=== PATIENT | female | born 1960 | race African-American/Black ===

== ENCOUNTER 2019-05-03 00:36 | Emergency (ER) | payer SELFPAY ==
--- NOTE | 2019-05-03 00:56 | NUR ---
ED Nurse Note: PT REFUSED TO BE TRIAGED. WALKED OUT WITHOUT BEING SEEN
--- NOTE | 2019-05-03 02:47 | Emergency Room Report ---
History of Present Illness General Chief Complaint: To Be Triaged Medical Decision Making ER Course Upon arrival patient reports that the nurses was rude to her. I did overhear this. However the patient was otherwise not seen by myself and left The emergency department prior to any evaluation Disposition: LEFT W/OUT BEING SEEN Referrals: NOT CHOSEN IPA/,REFERRING (PCP) Reina Raphael DO May 03, 2019 02:47
[2019-05-03] MEDS ORDERED: IBUPROFEN600 MG ORAL (06:17)
== END 2019-05-03 00:56 | disposition left against medical advice (07) ==
LOC: EMR 00:56
DX: Z53.21 Procedure and treatment not carried out due to patient leaving prior to being seen by health care provider (principal)

== ENCOUNTER 2019-05-03 04:32 | Emergency (ER) | payer MEDICARE, MEDICAID ==
[~2019-05-03] VITALS: Ht 165.1 cm; Wt 74.8 kg
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
[2019-05-03 05:30] VITALS: BP 113/75
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
[2019-05-03] MEDS ORDERED: IBUPROFEN600 MG ORAL (06:17)
[2019-05-03 06:21] VITALS: BP 113/75
--- NOTE | 2019-05-03 06:21 | NUR ---
ED Nurse Note: PT CLEARED TO BE D/C PER ERMD, PT DISCHARGE AND AFTERCARE INSTRUCTION PROVIDED, PT ADVISED TO FOLLOW UP WITH PCP, LIST OF CLINIC PROVIDED, PT VSS, AMBULATORY W/ STEADY GAIT, LEFT W/ ALL BELONGINGS, EDUCATION DONE VIA DISCUSSION AND HANDOUT, PT ADVISED TO RETURN TO ED IF CHANGES IN CONDITION. PT VERBALIZED UNDERSTANDING.
== END 2019-05-03 06:21 | disposition home or self-care (01) ==
LOC: EMR 05:22
DX: S09.90XA Unspecified injury of head, initial encounter (principal); X58.XXXA Exposure to other specified factors, initial encounter; Y92.9 Unspecified place or not applicable
CPT/HCPCS: 70450; 99284

== ENCOUNTER 2019-05-10 02:05 | Emergency (ER) | payer MEDICARE, MEDICAID ==
[~2019-05-10] VITALS: Ht 165.1 cm; Wt 54.4 kg
[~2019-05-10 02:05] MED LIST: IBUPROFEN600 MG ORAL
[2019-05-10 02:24] VITALS: BP 118/82
--- NOTE | 2019-05-10 02:39 | Emergency Room Report ---
History of Present Illness General Chief Complaint: Behavioral Complaint Source: Patient Present Illness HPI Is a 59-year-old female with a history of schizophrenia. She take Risperdal. She presents with chief complaint of feeling depressed and hearing voices. She claimed that she has been taking her medication regularly. She felt depressed because she lives in a boarding care and felt that people are picking on her. She said her is living in the [place] and he supposed to get his place soon so she can move from this boarding care. She denies suicidal thoughts homicidal thought. She denies any trauma. She said that she is hearing voices more because she is depressed. Denies any other complaint. Denies alcohol or drugs. Allergies: Coded Allergies: No Known Allergies (Unverified , 05/03/19) Patient History Past Medical History: see triage record, old chart reviewed, psych hx Past Surgical History: none Pertinent Family History: none Social History: Reports: smoking, alcohol use Now: No Immunizations: other Reviewed Nursing Documentation: PMH: Agreed; PSxH: Agreed Nursing Documentation-PMH Past Medical History: No History, Except For History Of Psychiatric Problem: Yes - SCHIZOPHRENIA Review of Systems Eye: Denies: eye pain, blurred vision ENT: Denies: ear pain, nose congestion, throat swelling Respiratory: Denies: cough, shortness of breath Cardiovascular: Denies: chest pain, palpitations Gastrointestinal: Denies: abdominal pain, diarrhea, nausea, vomiting Musculoskeletal: Denies: back pain, joint pain Skin: Denies: rash Psychiatric: Reports: hallucinations Neurological: Denies: headache, numbness Endocrine: Denies: increased thirst, increased urine Hematologic/Lymphatic: Denies: easy bruising All Other Systems: negative except mentioned in HPI Physical Exam Vital Signs Date Time Temp Pulse Resp B/P (MAP) Pulse Ox O2 Delivery O2 Flow Rate FiO2 05/10/19 02:09 98.4 103 18 121/82 (95) 96 Room Air Vitals normal Sp02 EP Interpretation: reviewed, normal General Appearance: well appearing, no apparent distress, alert Head: normocephalic, atraumatic Eyes: bilateral eye PERRL, bilateral eye EOMI ENT: hearing grossly normal, normal pharynx Neck: full range of motion, supple, no meningismus Respiratory: chest non-tender, lungs clear, normal breath sounds Cardiovascular #1: regular rate, rhythm, no murmur Gastrointestinal: normal bowel sounds, non tender, no mass, no organomegaly, no bruit, non-distended Musculoskeletal: back normal, gait/station normal, normal range of motion Neurologic: alert, oriented x3 Psychiatric: no suicidal/homicidal ideation, no delusions, depressed affect Medical Decision Making Diagnostic Impression: Primary Impression: Behavioral disorder Additional Impression: Adjustment disorder with depressed mood ER Course Presents with impaired with disorder with exacerbation of her schizophrenia. No criteria for 5150 no suicidal thoughts or homicidal thought. Last Vital Signs Date Time Temp Pulse Resp B/P (MAP) Pulse Ox O2 Delivery O2 Flow Rate FiO2 05/10/19 02:24 98.2 81 18 118/82 98 Room Air Status: improved Disposition: HOME, SELF-CARE Condition: Stable Referrals: NOT CHOSEN IPA/,REFERRING (PCP) Patient Instructions: Self-Destructive Behavior Additional Instructions: Follow-up with your doctor in mental health within a week. Return if worse. Abstain from drugs and alcohol. Jony Lauren MD May 10, 2019 02:39
[2019-05-10 04:46] VITALS: BP 123/68
[2019-05-10 05:54] VITALS: BP 130/76
[2019-05-10 05:55] VITALS: BP 130/76
== END 2019-05-10 05:56 | disposition home or self-care (01) ==
LOC: EMR 02:33
DX: F43.21 Adjustment disorder with depressed mood (principal); F20.9 Schizophrenia, unspecified; F17.200 Nicotine dependence, unspecified, uncomplicated
CPT/HCPCS: 99282

== ENCOUNTER 2019-06-12 17:12 | Emergency (ER) | payer MEDICARE, OTHER ==
[~2019-06-12] VITALS: Ht 165.1 cm; Wt 72.6 kg
[2019-06-12 17:30] VITALS: BP 120/78
--- NOTE | 2019-06-12 17:30 | NUR ---
ED Nurse Note: Patient walked into ED c/o dizziness that started 1 hour prior to arrival, states that she was running and suddenly felt dizzy. patient walks with a steady gait and is able to walk straight, patient complains of 10/10 generalized body pain, MATTHIEU Park notified of pain, patient placed in OB Room, IV started on right hand 20 gauge, will wait for further orders
[2019-06-12 18:17] LABS: ANION GAP 12 mmol/L (5-15); BLOOD UREA NITROGEN 8 mg/dL (7-18); CALCIUM 9.4 MG/DL (8.5-10.1); CARBON DIOXIDE 23 MMOL/L (21-32); CHLORIDE 106 MMOL/L (98-107); CREATININE 0.9 MG/DL (0.55-1.30); POTASSIUM 3.8 MMOL/L (3.5-5.1); SODIUM 141 MMOL/L (136-145)
[2019-06-12 18:21] LABS: ALANINE AMINOTRANSFERASE 27 U/L (12-78); ALBUMIN 4.1 G/DL (3.4-5.0); ALKALINE PHOSPHATASE 96 U/L (46-116); ASPARTATE AMINO TRANSFERASE 22 U/L (15-37); BILIRUBIN,TOTAL 0.4 MG/DL (0.2-1.0)
[2019-06-12 18:23] LABS: APPEARANCE,URINE CLEAR; BASOPHILS % (AUTO) 1.4 % (0.0-2.0); BILIRUBIN, URINE NEGATIVE (NEGATIVE); COLOR,URINE PALE YELLOW; EOSINOPHILS % (AUTO) 1.5 % (0.0-3.0); GLUCOSE, URINE (UA) NEGATIVE (NEGATIVE); HEMATOCRIT 40.8 % (37.0-47.0); HEMOGLOBIN 13.7 G/DL (12.0-16.0); KETONES,URINE NEGATIVE (NEGATIVE); LEUKOCYTE ESTERASE ,URINE NEGATIVE (NEGATIVE); LYMPHOCYTES % (AUTO) 24.8 % (20.0-45.0); MEAN CORPUSCULAR VOLUME 87 FL (80-99); MONOCYTES % (AUTO) 7.4 % (1.0-10.0); NEUTROPHILS % (AUTO) 64.9 % (45.0-75.0); NITRITE,URINE NEGATIVE (NEGATIVE); PH,URINE 5 (4.5-8.0); PLATELET COUNT 391 K/UL (150-450); PROTEIN,URINE NEGATIVE (NEGATIVE); RED BLOOD COUNT 4.69 M/UL (4.20-5.40); RED CELL DISTRIBUTION WIDTH 13.5 % (11.6-14.8); UROBILINOGEN,URINE NORMAL MG/DL (0.0-1.0)
--- NOTE | 2019-06-12 18:43 | Emergency Room Report ---
History of Present Illness General Chief Complaint: Dizziness Source: Patient Present Illness HPI 59-year-old female presents to the emergency department complaining of 10 out of 10 in severity lightheadedness x1 day. Patient reports she was experiencing similar symptoms over the last 2 weeks and was evaluated at [facility] and states that she had a normal CT scan. Patient denies vomiting she reports some nausea she denies vertigo she describes feeling as though she is going to faint. Patient states she is under a lot of stress, and that all of her stressful situations are causing her to have symptoms. Reports history of schizophrenia and was previously taking Risperdal however she states she is noncompliant because she feels she does not need the medication. She denies mariusz, delusions, HI or SI. She denies PSAs. She reports that she is a recovered substance user. Denies drug use at this time. Denies fevers or chills. Denies CP, Palpitations, LOC, AMS, Changes in Vision, Sensation, paresthesias, or a sudden severe headache. Pt. reports being outside in the heat doing a lot of walking and strenuous activities and feels very thirsty and dehydrated. Denies dysuria, hematuria or urinary frequency. Denies recent head injuries. Allergies: Coded Allergies: No Known Allergies (Unverified , 05/03/19) Patient History Past Medical History: see triage record, psych hx Past Surgical History: none Pertinent Family History: none Now: No Reviewed Nursing Documentation: PMH: Agreed; PSxH: Agreed Nursing Documentation-PMH Past Medical History: No History, Except For Hx Cardiac Problems: No - Sickle cell disease Hx Hypertension: No - Pancreatitis Hx Pacemaker: No Hx Asthma: No Hx COPD: No Hx Diabetes: No Hx Cancer: No Hx Gastrointestinal Problems: No Hx Dialysis: No History Of Psychiatric Problem: No Hx Neurological Problems: No Hx Cerebrovascular Accident: No Hx Seizures: No Review of Systems All Other Systems: negative except mentioned in HPI Physical Exam Vital Signs Date Time Temp Pulse Resp B/P (MAP) Pulse Ox O2 Delivery O2 Flow Rate FiO2 06/12/19 17:19 98.4 108 16 120/78 (92) 96 Room Air Sp02 EP Interpretation: reviewed, normal General Appearance: no apparent distress, alert, GCS 15, non-toxic Head: normocephalic, atraumatic Eyes: bilateral eye normal inspection, bilateral eye PERRL, bilateral eye other - no photophobia ENT: hearing grossly normal, normal voice Neck: full range of motion, no meningismus, no bony tend Respiratory: chest non-tender, lungs clear, normal breath sounds, no respiratory distress, no wheezing, speaking full sentences Cardiovascular #1: regular rate, rhythm, no edema, normal capillary refill Gastrointestinal: normal bowel sounds, non tender, soft, non-distended, no guarding Genitourinary: normal inspection, no CVA tenderness Musculoskeletal: gait/station normal, normal range of motion, non-tender Neurologic: alert, oriented x3, responsive, motor strength/tone normal, sensory intact, normal gait, speech normal, no pronator, distal neuro normal, other - no ataxia, negative rhomberg, unable to illicit symptoms upon standing. , grossly normal Psychiatric: judgement/insight normal, memory normal, no suicidal/homicidal ideation, no delusions, depressed affect, anxious - rapid persistent speech. reverts conversation back to social hx repeatedly. vague details regarding symptomatic cc, Pt. tearful intermittently, and also intermittently verbally defensive without provocation. Skin: no rash Lymphatic: no adenopathy Medical Decision Making PA Attestation Dr. Llanes is my supervising Physician whom patient management has been discussed with. Homeless Attestation I, The treating provider, Vivian SOMMERS, has assessed and agrees that patient is medically stable for discharge to an outpatient disposition. Diagnostic Impression: Primary Impression: Dizziness Additional Impression: Cocaine abuse ER Course 59-year-old female presents to the emergency department complaining of 10 out of 10 in severity lightheadedness x1 day. Patient reports she was experiencing similar symptoms over the last 2 weeks and was evaluated at [facility] and states that she had a normal CT scan. Patient denies vomiting she reports some nausea she denies vertigo she describes feeling as though she is going to faint. Patient states she is under a lot of stress, and that all of her stressful situations are causing her to have symptoms. Reports history of schizophrenia and was previously taking Risperdal however she states she is noncompliant because she feels she does not need the medication. She denies mariusz, delusions, HI or SI. She denies PSAs. She reports that she is a recovered substance user. Denies drug use at this time. Denies fevers or chills. Denies CP, Palpitations, LOC, AMS, Changes in Vision, hearing, sensation, paresthesias, or a sudden severe headache. Pt. reports being outside in the heat doing a lot of walking and strenuous activities and feels very thirsty and dehydrated. Denies dysuria, hematuria or urinary frequency. Denies recent head injuries. Ddx considered but are not limited to Mnire's, BPPV, labrinitis, cerebellar stroke, hypovolemia, cardiac cause, somatization, anemia, Drug use just to name a few. Vital signs: are WNL, pt. is afebrile H&PE are most consistent with : Psychiatric/ somatic etiology. Pt. continuously reverts to describing her current social history/ living situation and being in on probation. She gives little to no detail regarding her cc of dizziness other than stating " im old and sick and cant be going through this type of stuff, and cant to go penitentiary.." No focal deficit to indicate TIA or CVA. No vertical nystagmus. ORDERS: - CBC: WNL -CMP: WNL -Troponins, CK-MB, CK- all negative EK sinus tachycardia -UA: WNL -UDS: POSITIVE FOR COCAINE ED INTERVENTIONS: Better after IV fluid. Denies pain upon re-assessment. Because of lack of focality and red flags, I see no need for CT scan. Will discharge home. -I do not identify an emergent condition at this time. With current presentation , pt. is stable for close outpatient follow up and conservative treatment. D/ w pt. to return promptly to ED with worsening or new symptoms.- Pt. verbalizes' understanding and agreement with proposed treatment plan. DISCHARGE: At this time pt. is stable for d/c to home. Will provide printed patient care instructions, and any necessary prescriptions. Care plan and follow up instructions have been discussed with the patient prior to discharge. Labs Test 06/12/19 17:50 White Blood Count 8.0 K/UL (4.8-10.8) Red Blood Count 4.69 M/UL (4.20-5.40) Hemoglobin 13.7 G/DL (12.0-16.0) Hematocrit 40.8 % (37.0-47.0) Mean Corpuscular Volume 87 FL (80-99) Mean Corpuscular Hemoglobin 29.2 PG (27.0-31.0) Mean Corpuscular Hemoglobin Concent 33.6 G/DL (32.0-36.0) Red Cell Distribution Width 13.5 % (11.6-14.8) Platelet Count 391 K/UL (150-450) Mean Platelet Volume 6.2 FL (6.5-10.1) Neutrophils (%) (Auto) 64.9 % (45.0-75.0) Lymphocytes (%) (Auto) 24.8 % (20.0-45.0) Monocytes (%) (Auto) 7.4 % (1.0-10.0) Eosinophils (%) (Auto) 1.5 % (0.0-3.0) Basophils (%) (Auto) 1.4 % (0.0-2.0) Urine Color Pale yellow Urine Appearance Clear Urine pH 5 (4.5-8.0) Urine Specific [place] 1.015 (1.005-1.035) Urine Protein Negative (NEGATIVE) Urine Glucose (UA) Negative (NEGATIVE) Urine Ketones Negative (NEGATIVE) Urine Blood Negative (NEGATIVE) Urine Nitrite Negative (NEGATIVE) Urine Bilirubin Negative (NEGATIVE) Urine Urobilinogen Normal MG/DL (0.0-1.0) Urine Leukocyte Esterase Negative (NEGATIVE) Sodium Level 141 MMOL/L (136-145) Potassium Level 3.8 MMOL/L (3.5-5.1) Chloride Level 106 MMOL/L (98-107) Carbon Dioxide Level 23 MMOL/L (21-32) Anion Gap 12 mmol/L (5-15) Blood Urea Nitrogen 8 mg/dL (7-18) Creatinine 0.9 MG/DL (0.55-1.30) Estimat Glomerular Filtration Rate > 60 mL/min (>60) Glucose Level 102 MG/DL (74-106) Calcium Level 9.4 MG/DL (8.5-10.1) Total Bilirubin 0.4 MG/DL (0.2-1.0) Aspartate Amino Transf (AST/SGOT) 22 U/L (15-37) Alanine Aminotransferase (ALT/SGPT) 27 U/L (12-78) Alkaline Phosphatase 96 U/L (46-116) Troponin I 0.000 ng/mL (0.000-0.056) Total Protein 8.1 G/DL (6.4-8.2) Albumin 4.1 G/DL (3.4-5.0) Globulin 4.0 g/dL Albumin/Globulin Ratio 1.0 (1.0-2.7) Lipase 356 U/L (73-393) Urine Opiates Screen Negative (NEGATIVE) Urine Barbiturates Screen Negative (NEGATIVE) Phencyclidine (PCP) Screen Negative (NEGATIVE) Urine Amphetamines Screen Negative (NEGATIVE) Urine Benzodiazepines Screen Negative (NEGATIVE) Urine Cocaine Screen Positive (NEGATIVE) Urine Marijuana (THC) Screen Negative (NEGATIVE) EKG Diagnostic Results EP Interpretation: Dr. Llanes Rate: tachycardiac - 101 Rhythm: NSR ST Segments: no acute changes ASA given to the pt in ED: No PA Scribe Text This Interpretation was scribed by MATTHIEU Fenton. Last Vital Signs Date Time Temp Pulse Resp B/P (MAP) Pulse Ox O2 Delivery O2 Flow Rate FiO2 06/12/19 17:30 108 16 Room Air 06/12/19 17:30 98.4 120/78 96 Disposition: HOME, SELF-CARE Condition: Stable Referrals: [facility] Patient Instructions: Dizziness Additional Instructions: Take medications as directed. Follow up with a Primary Care Provider in 3-5 days, even if your symptoms have resolved. --Please review list of primary care clinics, if you do not already have a primary care provider Return sooner to ED if new symptoms occur, or current symptoms become worse. - Please note that this Emergency Department Report was dictated using [employer] manager technology software, occasionally this can lead to erroneous entry secondary to interpretation by the dictation equipment. Vivian Fenton Jun 12, 2019 18:43
[2019-06-12 19:05] VITALS: BP 123/79
[2019-06-12 20:49] VITALS: BP 127/81
--- NOTE | 2019-06-12 20:49 | NUR ---
ER DISCHARGE NOTE: Patient is cleared to be discharged per ERMD, pt is aox4, on room air, with stable vital signs. pt was given dc instructions, pt was able to verbalize understanding, pt id band and iv site removed without complications. pt is able to ambulate with steady gait. pt took all belongings.
--- NOTE | 2019-06-13 19:51 | Cardiology Report ---
APPROVED REPORT EKG Measurement Heart [id number] Sinus tachycardia Otherwise normal ECG
== END 2019-06-12 20:49 | disposition home or self-care (01) ==
LOC: EMR 17:48
DX: R42 Dizziness and giddiness (principal); F14.10 Cocaine abuse, uncomplicated; R00.0 Tachycardia, unspecified; F20.9 Schizophrenia, unspecified; Z91.19 Patient's noncompliance with other medical treatment and regimen
CPT/HCPCS: 36415; 80053; 80307; 81003; 83690; 84484; 85025; 93005; 96360; 99284

== ENCOUNTER 2019-06-23 05:28 | Emergency (ER) | payer MEDICARE, OTHER ==
[~2019-06-23] VITALS: Ht 165.1 cm; Wt 81.6 kg
[2019-06-23] MEDS ORDERED: QUETIAPINE FUMA25 MG ORAL (05:38)
[2019-06-23] MEDS ORDERED: RISPERDAL0.25 MG ORAL (05:38)
--- NOTE | 2019-06-23 05:39 | Emergency Room Report ---
History of Present Illness General Chief Complaint: Upper Respiratory Illness Source: Patient Present Illness HPI 59-year-old female past medical history of smoking currently smoking for greater than 15 years presents with cough, shortness of breath, no chest pain, sputum production chills 2 days, patient has been using albuterol at home, no aggravating factors severity is moderate, symptoms are constant patient presents for evaluation. She states she was recently at [facility] at 8:30 PM however she did not want to wait and came over here Allergies: Coded Allergies: No Known Allergies (Unverified , 05/03/19) Patient History Past Medical History: see triage record Social History: Reports: smoking Last Menstrual Period: unk Now: No Reviewed Nursing Documentation: PMH: Agreed; PSxH: Agreed Nursing Documentation-PMH Past Medical History: No History, Except For Hx Cardiac Problems: No - Sickle cell disease Hx Hypertension: No - Pancreatitis Hx Pacemaker: No Hx Asthma: No Hx COPD: No Hx Diabetes: No Hx Cancer: No Hx Gastrointestinal Problems: No Hx Dialysis: No Hx Neurological Problems: No Hx Cerebrovascular Accident: No Hx Seizures: No Review of Systems All Other Systems: negative except mentioned in HPI Physical Exam Vital Signs Date Time Temp Pulse Resp B/P (MAP) Pulse Ox O2 Delivery O2 Flow Rate FiO2 06/23/19 05:36 97.3 95 17 121/88 (99) 100 Room Air Sp02 EP Interpretation: reviewed, normal General Appearance: well appearing, no apparent distress, alert Head: normocephalic, atraumatic Eyes: bilateral eye PERRL, bilateral eye EOMI ENT: uvula midline, moist mucus membranes Neck: supple, thyroid normal, supple/symm/no masses Respiratory: no respiratory distress, no retraction, no accessory muscle use, wheezing - Wheezing mild Cardiovascular #1: normal peripheral pulses, regular rate, rhythm, no edema, no gallop, no murmur Gastrointestinal: non tender, soft, no guarding, no rebound Musculoskeletal: normal inspection Neurologic: alert, oriented x3 Psychiatric: mood/affect normal Skin: no rash, warm/dry Medical Decision Making Diagnostic Impression: Primary Impression: Upper respiratory infection Qualified Codes: J06.9 - Acute upper respiratory infection, unspecified Additional Impression: COPD exacerbation ER Course 59-year-old female presents most likely with a COPD exacerbation, will evaluate for infiltrate Patient with URI-like symptoms, will provide prednisone, albuterol Patient improved with DuoNeb's disposition home with return precautions Chest X-Ray Diagnostic Results Chest X-Ray Diagnostic Results : Chest X-Ray Ordered: Yes # of Views/Limited/Complete: 1 View Indication: Shortness of Breath EP Interpretation: Yes Interpretation: no consolidation, no effusion, no pneumothorax, no acute cardiopulmonary disease Impression: No acute disease Electronically Signed by: Keyon Floyd MD Last Vital Signs Date Time Temp Pulse Resp B/P (MAP) Pulse Ox O2 Delivery O2 Flow Rate FiO2 06/23/19 05:36 97.3 95 17 121/88 (99) 100 Room Air Disposition: HOME, SELF-CARE Condition: Stable Scripts Guaifenesin* (GUAIFENESIN) 100 Mg/5 Ml Liquid 15 ML ORAL Q8H PRN for For Cough, #120 ML 0 Refills Prov: Keyon Floyd MD 06/23/19 Prednisone* (PREDNISONE*) 50 Mg Tablet 50 MG ORAL DAILY, #4 TAB 0 Refills Prov: Keyon Floyd MD 06/23/19 Albuterol Sulfate* (ALBUTEROL SULFATE MDI*) 8.5 Gm Hfa.aer.ad 2 PUFF INH Q4H PRN for cough/wheezing, #1 EA 0 Refills Prov: Keyon Floyd MD 06/23/19 Referrals: [facility] Patient Instructions: Chronic Obstructive Pulmonary Disease Exacerbation Additional Instructions: The patient was provided with discharge instructions, notified to follow-up with a primary care doctor and or specialist in the next 24-48 hours, and to return to the ED if they have worsening of their symptoms. Please note that this report is being documented using [employer] technology. This can lead to erroneous entry secondary to incorrect interpretation by the dictating instrument. Keyon Floyd MD Jun 23, 2019 05:39
[2019-06-23 05:44] VITALS: BP 121/88
[2019-06-23] MEDS ORDERED: ALBUTEROL SULF8.5 GM INH (05:45)
[2019-06-23] MEDS ORDERED: PREDNISONE50 MG ORAL (05:45)
[2019-06-23] MEDS ORDERED: GUAIFENESI100 MG/5 M ORAL (05:45)
[2019-06-23] MEDS ORDERED: Ipratropium 0.02% Inh Soln 2.5ml UD HHN ONE (05:45)
[2019-06-23] MEDS ORDERED: Albuterol ud Inhalation HHN ONE (05:45)
--- NOTE | 2019-06-23 05:45 | NUR ---
ED Nurse Note: Patient walked in to ER c/o cough. States that she is so tired. AAO x4, VSS at this time, skin is warm to touch.
[2019-06-23 06:17] VITALS: BP 121/88
--- NOTE | 2019-06-23 06:19 | NUR ---
ED Nurse Note: Pt cleared by health care Provider for discharge. DC instructions/prescription was given and explained to pt and verbalized understanding of teachings. All medical deviecs such as ID band removed. Pt is AAO x4, ambulatory and left with all personal belongings.
== END 2019-06-23 06:15 | disposition home or self-care (01) ==
LOC: EMR 05:39
DX: J44.1 Chronic obstructive pulmonary disease with (acute) exacerbation (principal); J06.9 Acute upper respiratory infection, unspecified; D57.1 Sickle-cell disease without crisis; F17.200 Nicotine dependence, unspecified, uncomplicated; Z79.51 Long term (current) use of inhaled steroids
CPT/HCPCS: 94640; 94664; 99284; J7512